=== PATIENT | male | born 1985 | race Hispanic/Latino ===

== ENCOUNTER 2025-03-03 22:38 | Emergency (ER) | payer SELFPAY ==
[~2025-03-03] VITALS: Ht 175.3 cm; Wt 131.5 kg
--- NOTE | 2025-03-03 22:54 | ERN ---
ED Note History of Present Illness Stated Complaint: SCROTAL SWELLING Chief Complaint: Other Problems Time Seen by MD: 22:46 Time Seen by Midlevel: 22:47 Dictation: 39-year-old male presents to the emergency department due to reported having scrotal tenderness that began yesterday. He states that he feels a pressure type of sensation. Currently, there is no report of any fever, chills, nausea, vomiting, abdominal pain, flank pain, hematuria or penile discharge. The patient denies having sustained any type of trauma. Upon initial evaluation, the patient presents mildly uncomfortable looking. 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 Past Medical History Past Medical History: No Pertinent History Surgical History: None PSYCH History: no pertinent psych hx RN Note Reviewed/Agreed w/PFSH: Yes Review of System Dictation : Scrotal tenderness Initial Vital Sign VS Vital Signs Date Time Temp Pulse Resp B/P (MAP) Pulse Ox O2 Delivery O2 Flow Rate FiO2 03/03/25 22:40 98.1 117 20 203/111 99 Room Air 03/03/25 23:53 0 21 Physical Exam Dictation General: awake, alert, NAD Head/Face: Normocephalic, atraumatic Eyes: PERRL, EOMI ENT: Oral mucosa moist Neck: Trachea midline, supple Cardiovascular: RRR, 1+ pitting edema both lower extremities pretibial now Respiratory: Symmetrical, non-labored Abdomen: Soft, non-tender, non-distended, no guarding. : DIFFUSE SCROTAL SWELLING Skin: Warm, dry, good turgor, no rash MS/Extremity: Pulses equal, no cyanosis, neurovascular intact, FROM Neuro: COAx4, GCS 15, steady gait, Psych: Normal behavior, mood, and affect normal Results (Laboratory/Radiology) Laboratory/Radiology Laboratory Tests Test 03/03/25 23:02 03/03/25 23:46 03/04/25 00:17 03/04/25 00:25 White Blood Count 15.6 K/uL (4.8-10.8) H Red Blood Count 4.63 MIL/uL (4.50-6.20) Hemoglobin 14.0 g/dL (14.0-18.0) Hematocrit 41.5 % (42-54) L Mean Corpuscular Volume 89.6 fL (79-99) Mean Corpuscular Hemoglobin 30.2 pg (27.0-33.0) Mean Corpuscular Hemoglobin Concent 33.7 g/dL (32.0-36.0) Red Cell Distribution Width 12.6 % (11.0-15.5) Platelet Count 193 K/uL (130-400) Mean Platelet Volume 10.7 fL (7.5-10.5) H Immature Granulocyte % (Auto) 0.4 % (0-1) Neutrophils (%) (Auto) 79.2 % (40.0-77.0) H Lymphocytes (%) (Auto) 12.1 % (21.0-51.0) L Monocytes (%) (Auto) 6.8 % (3.0-13.0) Eosinophils (%) (Auto) 1.2 % (0.0-8.0) Basophils (%) (Auto) 0.3 % (0.0-5.0) Neutrophils # (Auto) 12.4 K/uL (1.8-7.7) H Lymphocytes # (Auto) 1.9 K/uL (1.0-4.8) Monocytes # (Auto) 1.1 K/uL (0.1-1.0) H Eosinophils # (Auto) 0.18 K/uL (0.00-0.70) Basophils # (Auto) 0.05 K/uL (0.00-0.20) Absolute Immature Granulocyte (auto 0.07 K/uL (0-1) Nucleated Red Blood Cells 0.0 % (0.0-0.19) Sodium Level 135 mmol/L (136-145) L Potassium Level 4.4 mmol/L (3.5-5.1) Chloride Level 97 mmol/L (101-111) L Carbon Dioxide Level 28 mmol/L (21-32) Blood Urea Nitrogen 14 mg/dL (7-18) Creatinine 1.0 mg/dL (0.5-1.3) Glomerular Filtration Rate Calc 98 mL/min (>90) Random Glucose 373 mg/dL (70-105) H Total Calcium 9.2 mg/dL (8.5-10.1) Total Bilirubin 0.7 mg/dL (0.2-1.0) Aspartate Amino Transf (AST/SGOT) 10 U/L (10-37) Alanine Aminotransferase (ALT/SGPT) 26 U/L (12-78) Alkaline Phosphatase 98 U/L (50-136) B-Type Natriuretic Peptide < 5 pg/mL (0-100) Total Protein 7.9 g/dL (6.0-8.3) Albumin 3.1 g/dL (3.5-5.0) L Urine Color LIGHT-YELLOW (YELLOW) Urine Appearance CLEAR (CLEAR) Urine pH 5.5 (5.0-8.0) Urine Specific [place] 1.038 (1.001-1.031) Urine Protein 70 mg/dL (NEGATIVE) H Urine Glucose (UA) >=1000 mg/dL (NEGATIVE) H Urine Ketones 20 mg/dL (NEGATIVE) H Urine Occult Blood +- (TRACE) (NEGATIVE) H Urine Nitrate NEGATIVE (NEGATIVE) Urine Bilirubin NEGATIVE mg/dL (NEGATIVE) Urine Urobilinogen 0.2 mg/dL (0.2-1.0) Urine Leukocyte Esterase 75 [place]/uL (NEGATIVE) H Urine RBC 2-5 /HPF (0-1) H Urine WBC 2-5 /HPF (0-1) H Urine Squamous Epithelial Cells RARE /HPF (0-2) Urine Bacteria None /HPF (None Seen) Whole Blood Ketones Quantitative 1.0 mmol/L (0.0-0.6) H Whole Blood Glucose 307 MG/DL (70-110) H Labs Reviewed?: Yes ED Course ED Course Orders Procedure Category Date Status Time Cbc With Differential LAB 03/03/25 Complete 22:49 Comprehensive LAB 03/03/25 Complete Metabolic Panel 22:49 Urinalysis Profile LAB 03/03/25 Complete 22:49 Us Scrotum & Contents US 03/03/25 Resulted 22:49 B-Type Natriuretic LAB 03/03/25 Complete Peptide 22:49 Chest 1vw RAD 03/03/25 Resulted 22:49 Culture Urine JANETH 03/04/25 In Process 00:09 Ketone Blood LAB 03/04/25 Complete Quantitative 00:07 0.9%Nacl 1000ml (Ns PHA 03/04/25 Complete 1000ml) 00:30 Insulin Regular, PHA 03/04/25 Complete Human 3ml (Humulin R 00:30 Current Medications Medications (Trade) Dose Ordered Sig/Nanette Route PRN Reason Start Time Stop Time Status Last Admin Dose Admin Insulin Human Regular (humuLIN R 100 UNIT/ML 3ML) 8 unit ONCE ONCE SQ 03/04/25 00:30 03/04/25 00:31 DC 03/04/25 00:26 Sodium Chloride 1,000 ml @ 0 mls/hr ONCE ONCE IV 03/04/25 00:30 03/04/25 00:31 DC 03/04/25 00:22 Vital Signs Date Time Temp Pulse Resp B/P (MAP) Pulse Ox O2 Delivery O2 Flow Rate FiO2 03/03/25 23:53 98.2 104 19 136/92 98 Room Air* 0 21 03/03/25 22:40 98.1 117 20 203/111 99 Room Air Medical Decision Making MDM MDM: Differential diagnosis: Cellulitis, acute UTI, diabetes with hyperglycemia. Rationale: Tests considered and ordered secondary to shared decision making include: Previous outside records reviewed: Old ER visits. Risk of complication and/or morbidity or mortality of patient management: None Medications-Per medication reconciliation Need for hospitalization: Patient does not meet criteria for hospitalization. Need for emergency major/minor surgery: No There are no social concerns with this patient. Prescription drug management Prescriptions will include symptomatic care Patient's prior external medical records from other ER visits were reviewed by me as indicated. Prior testing and results from previous visits were reviewed. Prior tests were taken into account with medical decision making and resource utilization, independent historian/historians were used to obtain complete medical history. I independently interpreted the test that were performed, results were reviewed by me and considered findings on radiology if ordered. Medical management and examination interpretation discussions were had by me with other qualified healthcare professionals as indicated for the patient's care. DX & DISP Disposition: Discharge Departure Impression: Primary Impression: Acute UTI Additional Impressions: Diabetes mellitus with hyperglycemia, Cellulitis Condition: Stable Scripts Sulfamethoxazole/Trimethoprim (Bactrim Ds Tablet) 800 Mg-160 Mg Tablet 1 TAB PO BID for 10 Days, #20 TAB 0 Refills Prov: DOMINIC GUZMAN 03/04/25 Time of Disposition: 01:08 DOMINIC GUZMAN Mar 03, 2025 22:54
[2025-03-03 23:06] LABS: IMMATURE GRANULOCYTE ABSOLUTE 0.07 K/uL (0-1); NUCLEATED RED BLOOD CELLS 0.0 % (0.0-0.19); PLATELET COUNT (AUTO) 193 K/uL (130-400); RED BLOOD CELL COUNT(AUTO) 4.63 MIL/uL (4.50-6.20); RED CELL DISTRIBUTION WIDTH 12.6 % (11.0-15.5); WHITE BLOOD COUNT (AUTO) 15.6 K/uL (4.8-10.8)
[2025-03-03 23:18] LABS: CREATININE 1.0 mg/dL (0.5-1.3); GLOMERULAR FILTR. RATE CALC 98.0 mL/min (>90); GLUCOSE,RANDOM 373.0 mg/dL (70-105); SODIUM SERUM 135.0 mmol/L (136-145); UREA NITROGEN, BLOOD 14.0 mg/dL (7-18)
[2025-03-03 23:22] LABS: ASPARTATE AMINOTRANSFERASE 10.0 U/L (10-37); TOTAL PROTEIN, SERUM 7.9 g/dL (6.0-8.3)
[2025-03-04 00:08] LABS: APPEARANCE,URINE CLEAR (CLEAR); GLUCOSE, URINE (UA) >=1000 mg/dL (NEGATIVE); LEUKOCYTE ESTERASE ,URINE 75 Leu/uL (NEGATIVE); NITRATE,URINE NEGATIVE (NEGATIVE); OCCULT BLOOD,URINE +- (TRACE) (NEGATIVE)
[2025-03-04 00:09] LABS: ADD UA MICROSCOPIC YES
[2025-03-04 00:12] LABS: SQUAMOUS EPITHELIAL CELL,UR RARE /HPF (0-2)
[2025-03-04] MEDS: 0.9%NACL 1000ML 1,000 ML IV ONE (00:22)
--- NOTE | 2025-03-04 00:23 | HMCIMG ---
EXAM: CR Chest, 1 view CLINICAL HISTORY: Chest pain. COMPARISON: None provided. FINDINGS: The lungs show no infiltrates or other acute findings. No pleural effusion or pneumothorax. The cardiomediastinal silhouette is within normal limits. No acute osseous abnormality. IMPRESSION: No acute cardiopulmonary process is evident. /[place]
--- NOTE | 2025-03-04 00:39 | HMCIMG ---
EXAM: US Scrotum. CLINICAL HISTORY: Pain. TECHNIQUE: Real-time ultrasound of the scrotum with color Doppler and image documentation. COMPARISON: None provided. FINDINGS: RIGHT TESTICLE: The right testicle measures 4.1 x 2.2 x 2.6 cm. Normal in size and echogenicity, no abnormal mass. Normal Doppler flow. LEFT TESTICLE: The left testicle measures 3.9 x 2.1 x 2.6 cm. Normal in size and echogenicity, no abnormal mass. Normal Doppler flow. EPIDIDYMIDES: The right epididymis measures 8 mm at the head, 4 mm at the body, and 4 mm at the tail. The left epididymis measures 7 mm at the head, 5 mm at the body, and 3 mm at the tail. Within normal limits in size and vascularity SCROTUM: Small bilateral hydrocele. Diffuse scrotal wall thickening with adjacent fat stranding, thickness measures up to 9 mm on the right side and 7 mm on the left side. No varicocele or extratesticular mass. IMPRESSION: Small hydroceles bilaterally. Diffuse scrotal wall inflammation. No testicular torsion is evident. /[place]
[2025-03-04] MEDS ORDERED: SULF1TAB42 PO (01:07)
[2025-03-04 01:10] VITALS: BP 145/89; PULSE 97; RESP 19; TEMP 98.8; O2SAT 98
== END 2025-03-04 01:16 | disposition home or self-care (01) ==
LOC: EDH 22:38
DX: N39.0 Urinary tract infection, site not specified (principal); E11.65 Type 2 diabetes mellitus with hyperglycemia; N49.2 Inflammatory disorders of scrotum
CPT/HCPCS: 99285; 71045; 80053; 83880; 85025; 87086; 82948 ×2; 82010; 81001; 36415 ×2; 76870; 96372; J1815